=== PATIENT | female | born 1935 | race Caucasian/White ===

== ENCOUNTER → 2016-11-02 | Outpatient (CLI) | payer OTHER | LOC: FIMAGING 10:51 | PROVIDERS: ATTEND Internal Medicine | DX: Z12.39 Encounter for other screening for malignant neoplasm of breast (principal); N64.4 Mastodynia | CPT/HCPCS: 76641; G0206 ==

== ENCOUNTER → 2017-01-19 | Outpatient (CLI) | payer OTHER | LOC: FIMAGING 09:07 | PROVIDERS: ATTEND Internal Medicine | DX: Z12.31 Encounter for screening mammogram for malignant neoplasm of breast (principal) | CPT/HCPCS: G0202 ==

== ENCOUNTER → 2018-01-23 | Outpatient (CLI) | payer OTHER | LOC: FIMAGING 09:09 | PROVIDERS: ATTEND Internal Medicine | DX: Z12.31 Encounter for screening mammogram for malignant neoplasm of breast (principal) ==

== ENCOUNTER 2018-09-26 09:24 | Inpatient (IN) | payer OTHER ==
[2018-09-26] MEDS ORDERED: ONDANSETRON 4 MG/2 ML VIAL IVP PRN (11:10)
[2018-09-26] MEDS ORDERED: ACETAMINOPHEN 325 MG TAB PO PRN (11:10)
[2018-09-26] MEDS ORDERED: ONDANSETRON DISINTEGRATING 4 MG TAB PO PRN (11:10)
[2018-09-26] MEDS ORDERED: IOPAMIDOL (ISOVUE 370) 100 ML BTL IV ONE (13:13)
--- NOTE | 2018-09-26 18:11 | GCON ---
[f rep st] CONSULTATION PULMONARY CONSULTATION DATE OF CONSULTATION: 09/26/2018 REASON FOR CONSULTATION: Lung mass/consolidation associated with a loculated pleural effusion. HISTORY OF PRESENT ILLNESS: The patient is a very pleasant 83-year-old. Over the last several month s, she has had increasing fatigue and weakness, nonspecific. Over the last 2-3 weeks, she has had ri ght-sided pain primarily associated with coughing and sometimes with movement, not particularly with breathing. She has had no fevers, chills, or sweats. She has had some other general body achiness. She presented to her primary care physician and was found to have leukocytosis of 17,000. She was a dmitted for further evaluation. A CT scan of the chest has been done. There is a moderate sized rel atively circumferential loculated pleural effusion present and a left lower lobe consolidative mass t ype lesion with possible bronchial obstruction leading to it in the superior segment of the left lowe r lobe. Thoracentesis and bronchoscopy are indicated. The patient denies shortness of breath. Mayorga raf, she has had some dyspnea on exertion associated with her weakness over the last number weeks. PAST MEDICAL HISTORY: Remarkable for systemic hypertension and hyperlipidemia as well as hypothyroid ism. OUTPATIENT MEDICATIONS: Include iron, spironolactone, piroxicam, amitriptyline, Bystolic, Zestril, a nd Synthroid along with p.r.n. medications, vitamins and supplements. DRUG ALLERGIES: Cortisone and penicillins. SOCIAL HISTOR Y: The patient is . She is a never smoker. Significant alcohol is negative. FAMILY HISTORY: Noncontributory. REVIEW OF SYSTEMS: A 10-point review of systems is negative except as mentioned above. PHYSICAL EXAMINATION: GENERAL APPEARANCE: Reveals a very pleasant woman who appears mildly dyspneic in bed at rest. VITAL SIGNS: Blood pressure is 107/67, heart rate 97 and regular. Respiratory rat e is 20. On room air, saturations are approximately 90%. She is afebrile. HEENT AND NECK: Unremar kable for lymphadenopathy or thyromegaly. There is no jugular venous distention. No cervical adenop athy is appreciated. CHEST: Reveals markedly decreased breath sounds on the right side compared to the left. Some rales are present in the mid upper left lung versus a possible rub or both in this ar ea. There are no rhonchi. There are no wheezes. HEART: Regular in rate and rhythm. There is a so ft systolic murmur, no gallop. ABDOMEN: Soft, nontender. No masses appreciated. EXTREMITIES: Unr emarkable for significant edema. NEUROLOGIC: Status is intact. LABORATORY: Pending. Outpatient white blood cell count done yesterday was 17. Hematocrit 39.7. Pl atelets are normal. Sodium is 131, BUN 24 with a creatinine of 1.1. Liver function studies were nor mal. BNP was nonspecifically elevated at 626. ASSESSMENT: 1. Pleural effusion. The patient has at least a moderate circumferential loculated pleural effusion of unclear etiology. Infectious versus malignant causes are most likely. Thoracentesis will be req uired. This will be done by Radiology under ultrasound guidance tomorrow and sent for Gram stain, cu ltures, cytologies and chemistry studies. 2. Lung mass/consolidation. This is associated with a pleural effusion as outlined above. The bron chi going into the superior segment of the left lower lobe appear to be blocked. Bronchoscopy is ind icated. 3. History of hypertension. Blood pressure is currently on the low side, not elevated. PLAN AND RECOMMENDATIONS: The patient will be allowed to have clear liquids in the morning and then be kept n.p.o. Bronchoscopy will be done in the afternoon, exact time to be arranged. This will be done under fluoroscopic guidance if needed. Thoracentesis will be done by Radiology under ultrasound guidance and sent for appropriate cultures. Oxygen will likely be required, at least at night. Further plans and recommendations will be made based on the results of the above procedures. /[id number]/MODL
--- NOTE | 2018-09-26 19:36 | GHP ---
[f rep st] HISTORY AND PHYSICAL DATE OF ADMISSION: 09/26/2018 PRIMARY DIAGNOSIS: Fatigue and right-sided back pain. PAST MEDICAL HISTORY: Positive for hypertension, anxiety, GERD, coronary artery disease, hypothyroid ism, hyperlipidemia. SOCIAL HISTORY: Never smoker. ALLERGIES: Penicillin and cortisone injections. FAMILY MEDICAL HISTORY: Father congestive heart failure, CVA and diabetes. Mother DJD and congestiv e heart failure. Brother with AODM and heart problems. CURRENT MEDICATIONS: Vitamin C 500 mg 1 tablet p.o. daily, vitamin E 400 units 1 tablet p.o. daily, fish oil 1200 mg 2 capsules daily, vitamin D3 2000 units 1 tablet daily, magnesium 400 mg p.o. daily, iron 65 one tablet p.o. daily, Osteo Bi-Flex joint shield tablet 1 tablet p.o. daily, PreserVision/l utein capsule 1 p.o. daily, extract 1200 mg p.o. twice daily, Bystolic 10 mg p.o. once shelli ly, 20 mg p.o. daily, amitriptyline 50 mg p.o. q.h.s., spironolactone 25 mg p.o. daily, li sinopril 40 mg 1 tablet p.o. daily, levothyroxine sodium 88 mcg p.o. daily. HISTORY OF PRESENTING ILLNESS: Patient is a delightful 83-year-old female who presented [facility] and was seen by myself complaining of progressively worsening fatigue over the past 3 or so weeks, and worsening right-sided back pain which radiates around to her abdomen. She has not noti sebastien any fevers, chills, night sweats, cough, shortness of breath, wheezing, chest pain, palpitations, dizziness, lightheadedness or GI upset. Patient's exam in the office was grossly normal, but her la bs did reveal an elevated white count of about 17,000 with a left shift. After discussing with the p colton, she was admitted for further workup, given her progressively worsening fatigue and leukocytos is. On admission, chest x-ray revealed new volume loss in the right hemithorax associated with abnor mal pleural disease, possible empyema versus pulmonary infarction versus loculated pneumonia. CT ang iogram was negative for PE, but did reveal central right lower lobe consolidation with an area of low attenuation that could be related to necrosis, abscess or malignancy, and a moderate loculated right pleural effusion. The patient also has a 7 mm right lower lobe nodule and a T12 compression fractur e noted to be acute or subacute, with a right paracentral disk protrusion at T12-L1 causing moderate spinal canal narrowing. After discussion with Dr. Castellanos of Pulmonology, the plan will be for a thora centesis for further identification of the loculated pneumonia, but will plan to start broad-spectrum antibiotics this evening for coverage. Dr. Castellanos will also plan for bronchoscopy tomorrow. REVIEW OF SYSTEMS: GENERAL: She endorses fatigue. Denies fevers, chills, night sweats. RESPIRATOR Y: Denies cough, wheeze, shortness of breath. CARDIOVASCULAR: Denies chest pain, palpitations, diz ziness, lightheadedness. GI: Denies nausea, vomiting, diarrhea, abdominal bloating or distention. MUSCULOSKELETAL: Endorses right-sided mid to low back pain, which occasionally radiates around to th e front side of her abdomen. She also notes intermittent generalized joint and bone aching. SKIN: Denies itching or rash. NEURO: Denies numbness, tingling, change in strength or sensation. PHYSICAL EXAM: GENERAL: Alert, oriented. VITALS: Stable. RESPIRATORY: Diminished breath sounds to the right base with coarse breath sounds to the right side. CARDIOVASCULAR: S1, S2. Regular rat e and rhythm. No murmurs, rubs, gallops. ABDOMEN: Soft, nontender, nondistended. Positive bowel s ounds. SKIN: Warm and dry. NEURO: Grossly intact. ASSESSMENT AND PLAN: 1. Loculated right pleural effusion. Plan for thoracentesis tomorrow. 2. Right lower lobe consolidation. Starting cefepime and Levaquin. Also plan for bronchoscopy in t morning per Dr. Castellanos (appreciate assistance). Will continue to monitor white count. 3. T12 compression fracture. Pain management as needed. At this time, it is unclear whether or not her pain is related to pleurisy versus a compression fracture, but will treat with pain medication a s needed. 4. Essential hypertension. Continue outpatient medications, including Bystolic and Spironolactone. 5. Coronary artery disease, stable and without symptoms of acute coronary syndrome. Continue outpat ient medications and outpatient monitoring. 6. Hypothyroid. Levothyroxine. DISPOSITION: Admit as observation for further workup. /[id number]/MODL
[2018-09-26] MEDS ORDERED: CEFEPIME HCL 2 GM in NS 100 ML IV SCH (21:00)
[2018-09-27 04:40] LABS: PLATELET COUNT 280 10^3/uL (150-400)
[2018-09-27 04:52] LABS: INR 1.46 (0.83-1.16); PROTIME(PATIENT) 17.1 SEC (12.0-15.0)
[2018-09-27] MEDS ORDERED: traMADol 50 MG TAB PO PRN (08:04)
[2018-09-27] MEDS ORDERED: LIDOCAINE 1% 300 MG/30 ML SDV ONE ×2 (08:05→11:49)
[2018-09-27] MEDS: LISINOPRIL 40 MG TAB PO SCH (10:03)
[2018-09-27] MEDS: NEBIVOLOL HCL 5 MG TAB PO SCH (10:03)
[2018-09-27] MEDS: LEVOTHYROXINE 88 MCG TAB PO SCH (10:03)
[2018-09-27] MEDS: AMPICILLIN/SULBACTAM 3 GM in NS 100 ML IV SCH ×3 (10:05→21:07)
[2018-09-27] MEDS: ASCORBIC ACID 500 MG TAB PO SCH (10:13)
[2018-09-27] MEDS: MAGNESIUM OXIDE 400 MG TAB PO SCH (10:14)
[2018-09-27] MEDS: CHOLECALCIFEROL VIT D3 2,000 UNITS TAB/CAP PO SCH (10:14)
[2018-09-27] MEDS: PIROXICAM 20 MG PO SCH (10:14)
[2018-09-27] MEDS: SPIRONOLACTONE 25 MG TAB PO SCH (10:14)
[2018-09-27] MEDS: FERROUS SULFATE 325 MG TAB PO SCH (10:14)
--- NOTE | 2018-09-27 10:21 | SOAPPROG ---
SOAP Progress Note Assessment/Plan: Assessment: 83 yo female admitted for R loculated pleural effusion and RLL consolidation. Plan: Loculated pleural effusion and RLL consolidation: thoracentesis this morning and bronch this afternoon. D/w pharmacy and will switch abx to Unasyn for coverage until ID from [facility] comes back. White count up to 19k this morning. Will continue to monitor. T12 compression fracture: prn tramadol CAD: stable on current meds Hypothyroidism: synthroid Dispo: Will admit to inpt as anticipate greater than 2 midnight stay 09/27/18 10:22 Subjective: Ruby is resting in bed this morning, still feeling quite fatigued. Objective: Vital Signs Temp Pulse Resp BP Pulse Ox 36.8 C 109 H 16 129/75 H 87 L 09/27/18 07:05 09/27/18 07:05 09/27/18 07:05 09/27/18 07:05 09/27/18 07:05 Laboratory Results 09/27/18 04:08 09/27/18 04:08 09/26/18 09/27/18 09/28/18 05:59 05:59 05:59 Intake Total 200 Output Total 300 Balance -100 PT 17.1 SEC (12.0-15.0) H 09/27/18 04:08 INR 1.46 (0.83-1.16) H 09/27/18 04:08 Gen- alert, oriented Head- normocephalic, atraumatic Resp- diminished R base with coarse breath sounds to right CV- S1S2, RRR, no murmurs, rubs, gallops Skin- warm and dry ICD10 Worksheet Patient Problems: Problems Problem Status Onset Pleural effusion Acute - ICD10 Problem Qualifiers (1) Pleural effusion
[2018-09-27] MEDS ORDERED: LIDOCAINE 2% JELLY 6 ML TOPICAL SYR ONE (11:46)
[2018-09-27] MEDS ORDERED: EPINEPHrine 1 MG/10 ML SYR IVP ONE (11:46)
[2018-09-27] MEDS ORDERED: ALBUTEROL 3 ML DEYVIAL ONE (11:46)
[2018-09-27] MEDS ORDERED: ALBUTEROL 3 ML DEYVIAL IH ONE (12:17)
[2018-09-27] MEDS ORDERED: NS 500 ML IV ONE (12:17)
[2018-09-27] MEDS ORDERED: MIDAZOLAM 2 MG/2 ML VIAL ONE (13:03)
[2018-09-27] MEDS ORDERED: fentaNYL 100 MCG/2 ML INJ ONE (13:03)
[2018-09-27] MEDS ORDERED: fentaNYL 100 MCG/2 ML INJ IVP ONE (13:32)
[2018-09-27] MEDS ORDERED: MIDAZOLAM 2 MG/2 ML VIAL IVP ONE (13:33)
--- NOTE | 2018-09-27 14:39 | GPN ---
[f rep st] PROCEDURE NOTE PROCEDURE: Bronchoscopy. REASON FOR BRONCHOSCOPY: An 83-year-old woman admitted with lung mass, possibly postobstructive and related to the superior segment of the right lower lobe. This is associated with a complex, relative ly circumferential pleural effusion, indolent, but significant infection versus malignancy are highes t on the differential. PROCEDURE IN DETAIL: The procedure was performed in the endoscopy unit. Appropriate time-out was pe rformed. Informed consent was obtained from the patient. 5 cc of 4% lidocaine was used to anestheti ze the posterior oropharynx. Approximately 20 cc of 1% lidocaine was used topically to anesthetize t he vocal cords and lower tracheobronchial tree. 3 mg of Versed and 75 mcg of fentanyl total were giv en for conscious sedation. The fiberoptic bronchoscope was advanced via a bite block orally. The vocal cords were identified an d cannulated. The bronchoscope was then advanced into the trachea and in the lower tracheobronchial tree. Modest secretions, at best, were present. These were removed with suction and lavage. The le ft side was normal. The right upper lobe was normal, as was the right middle lobe. The right lower lobe was extrinsically compressed. The superior segment of the right upper lobe was also compressed extrinsically and was difficult to evaluate/difficult to enter. Washings and brushings were obtained from the superior segment of the right lower lobe and other lower lobe segments. These were sent fo r cultures, as well as cytologies. The patient tolerated the procedure well. There were no complications. Vital signs and oxygen satur ations on supplemental oxygen remained normal throughout the procedure. ASSESSMENT: Extrinsic compressive changes/narrowing of right lower lobe segments, especially the sup erior segment of the right lower lobe. Appropriate samples were obtained and sent to the lab. /[id number]/MODL
--- NOTE | 2018-09-27 15:41 | PDPROPOC ---
Sedation Plan of Care Sedation Plan of Care: vital signs stable, mental status noted, patient educated of risks, benefits, alternatives, patient can tolerate sedation ASA Classification: ASA 2 Planned drugs: fentanyl, midazolam Mallampati Score: Class 2 Mallampati Reference Image: Patient passed 3-3-2 rule?: Yes
--- NOTE | 2018-09-27 15:44 | ASMTCASEMG ---
Living Arrangements What is your living Answers: With Child(alvin) arrangement? Who do you live with? Discharge Plan Comments Coordination Status Comments Notes: Pt was admitted through the ED yesterday with weakness, fatigue, and leukocytosis. CM met with pt in her room today. She had thorocentesis ultrasound and bronchoscopy today. Awaiting results; suspected infection. Pt lives at home with her adult son, Lavelle Arriaga [phone]. Lavelle does not drive. Pt is normally independent and drives and is able to obtain her own meds and meals. CM left her a pamphlet with information on [employer]. She arrived to the ED by taxi because she didn't want her car to sit in the parking lot for an indeterminate amount of time. She does not use a walker or any other asisstive devices. No therapies are ordered. No CM needs identified at this time. CM will be available should needs change. CM D/C plan: TBD, likely independent to home. Date Signed: 09/27/2018 03:43 PM Electronically Signed By:Leticia Chaves
--- NOTE | 2018-09-27 18:21 | PDMN ---
Medical Necessity Medical necessity: [facility] [place] M540 Pleural Effusion, A-2 days: 83 yo w/ fatigue, back and abd pain. Eval reveals WBC 17K w/ left shift, direct admit for workup/tx. Dx texting shows loculated R pleural effusion w/ R lower lobe consolidation and a T12 compression fx. Pulm consult and thoracentesis ordered. Initially OBS but pt WBC increased to 19K overnight, thoracentesis shows suspected PNA w/ effusion, bronchoscopy performed showing significant infection vs. malignancy. Cultures pending. Pt cont on IVF and IV antibx. Meets [facility] [place] IP criteria for pleural effusion w/ admit indicated by loculated effusion. Change to IP status 09/27/18@1753 per MD order. Hx HTN, anxiety, GERD, CAD, hypothyroid, HLD
--- NOTE | 2018-09-27 18:37 | SOAPPROG ---
SOAP Progress Note Assessment/Plan: Assessment: Bronchoscopy was relatively unremarkable. Results pending. Thoracentesis suggests a low-grade empyema. White blood cells and gram- positive cocci present, low pH, high LDH, low glucose, etc. Only approximately 15 cc was obtained. The pleural process is quite organized. She will not get better without surgical drainage. VATS and or thoracotomy will be needed. Discussed with Dr. Melo. No emergent need for surgery identified. Dr. Melo is busy, with a full OR schedule. We will consult Dr. Monahan in the a.m.. Plan: Surgical consultation with Dr. Monahan in a.m.. Continue present antibiotics. Anticipate surgery in the next several days. All the above was discussed with the patient. Objective: Vital Signs Temp Pulse Resp BP Pulse Ox 36.5 C 97 20 100/57 L 93 09/27/18 17:22 09/27/18 17:22 09/27/18 17:22 09/27/18 17:22 09/27/18 17:22 Microbiology 09/27/18 09:30 Gram Stain - Final Pleural Fluid - Aspirate Laboratory Results 09/27/18 04:08 09/27/18 04:08 09/26/18 09/27/18 09/28/18 05:59 05:59 05:59 Intake Total 200 375 Output Total 300 Balance -100 375 PT 17.1 SEC (12.0-15.0) H 09/27/18 04:08 INR 1.46 (0.83-1.16) H 09/27/18 04:08 ICD10 Worksheet Patient Problems: Problems Problem Status Onset Pleural effusion Acute
[2018-09-27] MEDS: CALCIUM CARBONATE 500 MG TAB PO SCH (21:06)
[2018-09-27] MEDS: AMITRIPTYLINE HCL 50 MG TAB PO SCH (21:06)
[2018-09-28] MEDS: AMPICILLIN/SULBACTAM 3 GM in NS 100 ML IV SCH ×4 (03:50→23:47)
[2018-09-28] MEDS: LEVOTHYROXINE 88 MCG TAB PO SCH (04:43)
[2018-09-28] MEDS: SPIRONOLACTONE 25 MG TAB PO SCH (08:45)
[2018-09-28] MEDS: FERROUS SULFATE 325 MG TAB PO SCH (08:45)
[2018-09-28] MEDS: PIROXICAM 20 MG PO SCH (08:45)
[2018-09-28] MEDS: LISINOPRIL 40 MG TAB PO SCH (08:45)
[2018-09-28] MEDS: NEBIVOLOL HCL 5 MG TAB PO SCH (08:46)
[2018-09-28] MEDS: ASCORBIC ACID 500 MG TAB PO SCH (08:46)
[2018-09-28] MEDS: CHOLECALCIFEROL VIT D3 2,000 UNITS TAB/CAP PO SCH (08:46)
[2018-09-28] MEDS: MAGNESIUM OXIDE 400 MG TAB PO SCH (08:46)
--- NOTE | 2018-09-28 13:11 | SOAPPROG ---
SOAP Progress Note Assessment/Plan: Assessment: 83 yo female w/ RLL empyema, s/p bronch yesterday, awaiting consultation w/ Dr Monahan today - awaiting cultures, cont abx, appreciate input of Dr. Castellanos and Dr. 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 Case Mngt helping w/ this as well. -HTN cont Bystolic and ACEi, holding spironolactone right now w/ euvolemic state and has been having low bp's. -thoracic compression fx - cont tramadol prn Plan: 09/28/18 13:08 09/28/18 13:11 Subjective: doing ok, slept better last night, bit of a cough from bronch but no c/o anything except concern w/ care for son Objective: Vital Signs Temp Pulse Resp BP Pulse Ox 37.1 C 101 H 17 119/71 94 09/28/18 08:22 09/28/18 11:36 09/28/18 08:22 09/28/18 08:22 09/28/18 11:36 Microbiology 09/27/18 13:30 Mycobacterial Smear (MATTHEW) - Final Bronchial Alveolar Lavage - Right Lower Lobe 09/27/18 09:30 Gram Stain - Final Pleural Fluid - Aspirate 09/27/18 13:30 Gram Stain - Final Bronchial Alveolar Lavage - Right Lower Lobe 09/27/18 17:24 Mycobacterial Smear (MATTHEW) - Final Thoracic Fluid - Aspirate Laboratory Results 09/27/18 04:08 09/27/18 04:08 09/27/18 09/28/18 09/29/18 05:59 05:59 05:59 Intake Total 200 675 Output Total 300 Balance -100 675 PT 17.1 SEC (12.0-15.0) H 09/27/18 04:08 INR 1.46 (0.83-1.16) H 09/27/18 04:08 Gen: alert, oriented, sitting up in bed eating oatmeal Heetn: perr, eomi Neck: soft supple Chest: cta b, decreased bs posteriorly vidal RRL w/ dressing in place CV: rrr ABd: soft nt nd Ext: trace ankle edema, good pulses Neuro: a&O, pleasant, good affect and range of emotion - Pending Discharge Pending Discharge Within 24 Hours: No ICD10 Worksheet Patient Problems: Problems Problem Status Onset Pleural effusion Acute
--- NOTE | 2018-09-28 14:44 | SOAPPROG ---
SOAP Progress Note Assessment/Plan: Assessment: 83-YEAR-OLD FEMALE WITH RIGHT EMPYEMA/DOING REASONABLY WELL/STILL SOME PAIN IN THE RIGHT SIDE/AFEBRILE/THORACENTESIS UNSUCCESSFUL Plan: VATS DECORTICATION 09/28/18 14:43 Objective: Vital Signs Temp Pulse Resp BP Pulse Ox 37.1 C 101 H 17 119/71 94 09/28/18 08:22 09/28/18 11:36 09/28/18 08:22 09/28/18 08:22 09/28/18 11:36 Microbiology 09/27/18 13:30 Gram Stain - Final Bronchial Alveolar Lavage - Right Lower Lobe 09/27/18 13:30 Mycobacterial Smear (MATTHEW) - Final Bronchial Alveolar Lavage - Right Lower Lobe 09/27/18 09:30 Gram Stain - Final Pleural Fluid - Aspirate 09/27/18 17:24 Mycobacterial Smear (MATTHEW) - Final Thoracic Fluid - Aspirate Laboratory Results 09/27/18 04:08 09/27/18 04:08 09/27/18 09/28/18 09/29/18 05:59 05:59 05:59 Intake Total 200 675 Output Total 300 Balance -100 675 PT 17.1 SEC (12.0-15.0) H 09/27/18 04:08 INR 1.46 (0.83-1.16) H 09/27/18 04:08 ICD10 Worksheet Patient Problems: Problems Problem Status Onset Pleural effusion Acute
--- NOTE | 2018-09-28 14:55 | SOAPPROG ---
SOAP Progress Note Assessment/Plan: Assessment: Pleural effusion, circumferential consistent with a low-grade empyema. White blood cells and gram-positive cocci present, low pH, high LDH, low glucose, etc. Only approximately 15 cc was obtained. The pleural process is quite organized. She will not get better without surgical drainage. VATS and or thoracotomy will be needed. Dr. Monahan has seen the patient, VATS pleurectomy possibly later today or tomorrow. Right lower lobe consolidation. Cannot rule out obstruction related to the superior segment of the right middle lobe but would seem unlikely. Bronchoscopy relatively unremarkable. Growing only mixed arleth. AFB negative. Cytologies pending. Plan: VATS or thoracotomy per Dr. Monahan, possibly today. Will await the results of his findings and further results from bronchoscopy. Subjective: Feels okay. Denies pleuritic chest pain. Some cough occasionally, no mucus. Denies fevers, chills Objective: Vital Signs Temp Pulse Resp BP Pulse Ox 37.1 C 101 H 17 119/71 94 09/28/18 08:22 09/28/18 11:36 09/28/18 08:22 09/28/18 08:22 09/28/18 11:36 Microbiology 09/27/18 13:30 Gram Stain - Final Bronchial Alveolar Lavage - Right Lower Lobe 09/27/18 13:30 Mycobacterial Smear (MATTHEW) - Final Bronchial Alveolar Lavage - Right Lower Lobe 09/27/18 09:30 Gram Stain - Final Pleural Fluid - Aspirate 09/27/18 17:24 Mycobacterial Smear (MATTHEW) - Final Thoracic Fluid - Aspirate Laboratory Results 09/27/18 04:08 09/27/18 04:08 09/27/18 09/28/18 09/29/18 05:59 05:59 05:59 Intake Total 200 675 Output Total 300 Balance -100 675 PT 17.1 SEC (12.0-15.0) H 09/27/18 04:08 INR 1.46 (0.83-1.16) H 09/27/18 04:08 Physical Exam - Physical Exam General Appearance: alert, no apparent distress EENT: other (On nasal cannula oxygen, 1-2 L) Neck: normal inspection (No JVD), No lymphadenopathy (R), No lymphadenopathy (L) Respiratory: decreased breath sounds (Bilaterally, more so on the right than the left), rales (Some scattered rales on the right in the mid lung zone. No obvious rub), other (Dullness present on the right versus left) Cardiac/Chest: regular rate, rhythm, No gallop Abdomen: normal bowel sounds, non-tender, soft Skin: normal color, warm/dry Extremities: No pedal edema Neuro/Psych: no motor/sensory deficits, No cognition abnormalities ICD10 Worksheet Patient Problems: Problems Problem Status Onset Pleural effusion Acute
--- NOTE | 2018-09-28 15:07 | ASMTCMCOM ---
CM Note CM Note Notes: Met w patient d/t reports that she was anxious about being hospitalized while her son - for whom she is caregiver - is at home. Patient is to have VATS today; d/c date and needs TBD. 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 She says that he does not drive but he was able to take the bus to [place] today. She says that he is independent in all of his ADLs and would be able to buy groceries if he needed to. It seems like she is responsible for all of the finances in the household and is mainly worried that if something happened to her that he wouldn't know how/be able to access accounts, finances, etc. She does have a trust set up for him and contacted her electrical continuity tester today when she found out she needed the procedure. We talked about getting more support - for her - in the house when she is d/c'ed. She has used [facility] [employer] before and is open to using them again. She has also tried to contact the [facility] and I told her that we could help with this, as well. Case Management will follow so that she has a safe d/c home and does not compromise her health in her desire to care for her son. Date Signed: 09/28/2018 03:06 PM Electronically Signed By:Dian Walden RN
[2018-09-28] MEDS ORDERED: LR 1,000 ML IV ONE (16:27)
[2018-09-28] MEDS ORDERED: DEXAMETHASONE 4 MG/ML VIAL ONE (17:05)
[2018-09-28] MEDS ORDERED: ONDANSETRON 4 MG/2 ML VIAL ONE (17:05)
[2018-09-28] MEDS ORDERED: ROCURONIUM 100 MG/10 ML VIAL ONE (17:05)
[2018-09-28] MEDS ORDERED: TALC 3 GM INTRAPLEURAL VIAL ONE (19:23)
[2018-09-28] MEDS ORDERED: BUPIVACAINE 0.5% 30 ML SDV ONE (19:23)
[2018-09-28] MEDS ORDERED: NALOXONE HCL 0.4 MG/ML INJ IVP PRN (19:38)
[2018-09-28] MEDS ORDERED: NS 500 ML IV PRN (19:38)
[2018-09-28] MEDS ORDERED: ALBUTEROL 3 ML DEYVIAL IH PRN (19:38)
[2018-09-28] MEDS ORDERED: HYDROCODONE/APAP 5/325 TAB PO PRN (19:38)
[2018-09-28] MEDS ORDERED: fentaNYL 100 MCG/2 ML INJ IVP PRN (19:38)
[2018-09-28] MEDS ORDERED: ONDANSETRON 4 MG/2 ML VIAL IVP PRN ×2 (19:38→22:52)
[2018-09-28] MEDS ORDERED: HYDROmorphONE/DILAUDID 1 MG/ML INJ IVP PRN ×2 (19:38→22:52)
--- NOTE | 2018-09-28 19:40 | PDANEPAE ---
ANE History of Present Illness R VATS ANE Past Medical History - Cardiovascular History Hx Hypertension: Yes - Pulmonary History Hx Asthma/Reactive Airway Disease: Yes Hx Recent Upper Respiratory Infection: Yes Hx Oxygen in Use at Home: No Hx Sleep Apnea: No Sleep Apnea Screening Result - Last Documented: Negative - Endocrine History Hx Diabetes: No - Chronic Pain History Chronic Pain: No ANE Review of Systems Review of Systems: ANE Patient History - Allergies Allergies/Adverse Reactions: cortisone [Cortisone] Allergy (Intermediate, Verified 09/26/18 11:22) Flushing/Rash Penicillins Allergy (Intermediate, Verified 09/26/18 11:22) Loss of consciousness/Rash - Home Medications Home Medications: Amitriptyline HCl [Elavil 50 mg (*)] 50 mg PO HS 09/26/18 [Last Taken 09/25/18] Ascorbic Acid [Vitamin C 500 mg (*)] 500 mg PO DAILY 09/26/18 [Last Taken ] C/E/Zn/Cu/OM3/DHA/EPA/LUT/ZEAX [Preservision Areds 2 Softgel] 1 each PO BID [Last Taken 09/26/18] Calcium Carbonate [Oyster Shell Calcium 500 mg (*)] 1,000 mg PO HS 09/26/18 [ Last Taken 09/25/18] Cholecalciferol Vit D3 [Vitamin D3 2000 units tab (OTC)] 2,000 units PO DAILY [Last Taken 09/26/18] Ferrous Sulfate [Ferrous Sulf 325 MG (*)] 325 mg PO DAILY 09/26/18 [Last Taken 09/25/18] Herbals/Supplements -Info Only 1 ea PO DAILY 09/26/18 [Last Taken Unknown] Ibuprofen [Motrin (*)] 200 mg PO DAILY PRN 09/26/18 [Last Taken Unknown] Levothyroxine [Synthroid 88 mcg (*)] 88 mcg PO DAILY06 09/26/18 [Last Taken ] Lisinopril [Zestril 40 mg (*)] 40 mg PO DAILY 09/26/18 [Last Taken 09/26/18] Magnesium Oxide [Magnesium Oxide 400 mg (*)] 400 mg PO DAILY 09/26/18 [Last Taken 09/25/18] Nebivolol HCl [Bystolic] 10 mg PO DAILY 09/26/18 [Last Taken 09/26/18] Mathias-3 Fatty Acids [Fish Oil 1000 mg (*)] 1,000 mg PO HS 09/26/18 [Last Taken 09/25/18] Mathias-3 Fatty Acids [Fish Oil 1000 mg (*)] 2,000 mg PO DAILY 09/26/18 [Last Taken 09/26/18] Piroxicam [Feldene] 20 mg PO DAILY 09/26/18 [Last Taken 09/26/18] Spironolactone [Aldactone 25 MG (*)] 25 mg PO DAILY 09/26/18 [Last Taken ] - NPO status NPO Since - Liquids (Date): 09/27/18 NPO Since - Liquids (Time): 10:30 NPO Since - Solids (Date): 09/27/18 NPO Since - Solids (Time): 10:30 - Smoking Hx Smoking Status: Never smoked ANE Labs/Vital Signs - Labs Result Diagrams: 09/27/18 04:08 09/27/18 04:08 - Vital Signs Blood Pressure: 132/79 Heart Rate: 102 Respiratory Rate: 16 O2 Sat (%): 96 Height: 152.4 cm Weight: 62.5 kg ANE Physical Exam - Airway Neck exam: FROM Mallampati Score: Class 2 Mouth exam: normal dental/mouth exam - Pulmonary Pulmonary: clear to auscultation - Cardiovascular Cardiovascular: regular rate and rhythym - ASA Status ASA Status: III ANE Anesthesia Plan Anesthesia Plan: general endotracheal anesthesia Specialized Airway: double lumen tube, fiberoptic intubation
[2018-09-28] MEDS ORDERED: HYDROmorphONE/DILAUDID 2 MG/ML INJ ONE (19:45)
[2018-09-28] MEDS ORDERED: VASOPRESSIN 20 UNIT/ML VIAL ONE (20:21)
[2018-09-28] MEDS ORDERED: PHENYLEPHRINE HCL 100 MCG/ML SYR ONE (20:22)
[2018-09-28] MEDS ORDERED: SUGAMMADEX SODIUM 200 MG/2 ML VIAL IVP ONE (21:46)
--- NOTE | 2018-09-28 22:02 | POSTANESTH ---
Post Anesthetic Evaluation Cardiovascular Status: Normal, Stable Respiratory Status: Normal, Stable Level of Consciousness/Mental Status: Can Participate in Eval, Alert and Oriented Pain Control: Adequate, Prn Tx Ordered Nausea/Vomiting Control: Adequate, Prn Tx Ordered Complications Possibly Related to Anesthesia: None Noted
--- NOTE | 2018-09-28 22:48 | POSTOPPROG ---
Post Op Note Date of Operation: 09/28/18 Surgeon: Michael Monahan Anesthesiologist: GOSIA Anesthesia: GET(General Endotracheal) Pre-op Diagnosis: RT EMPYEMA Post-op Diagnosis: SAME Indication: PAIN, LUNG ENTRAPMENT Procedure: VATS DRAINAGE EMPYEMA AND DECORTICATION Findings: THICK PUS POSTERIORLY WITH FIBRINOUS EXUDATE AND RLL PNEUMONIA Inf/Abcess present in the surg proc area at time of surgery?: Yes Depth: Organ Space EBL: Minimal Complications: 0 Drains: Constavac Specimen(s): CULTURES AND PLEURAL EXUDATE
[2018-09-28] MEDS ORDERED: OXYCODONE/APAP 5/325 TAB PO PRN (22:52)
[2018-09-28] MEDS ORDERED: KETOROLAC 15 MG/1 ML SDV ONE (22:56)
[2018-09-28] MEDS: KETOROLAC 15 MG/1 ML SDV IVP SCH (23:03)
[2018-09-28] MEDS: AMITRIPTYLINE HCL 50 MG TAB PO SCH (23:47)
[2018-09-28] MEDS: PRESERVISION AREDS2 FORMULA EYE VIT 1 EACH PO SCH (23:47)
[2018-09-28] MEDS: CALCIUM CARBONATE 500 MG TAB PO SCH (23:47)
[2018-09-29] MEDS: D5W 1/2 NS W/ 20 KCl/L 1,000 ML IV SCH ×2 (00:04→14:49)
[2018-09-29] MEDS: AMPICILLIN/SULBACTAM 3 GM in NS 100 ML IV SCH ×2 (03:10→09:28)
[2018-09-29 04:31] LABS: PLATELET COUNT 284 10^3/uL (150-400)
[2018-09-29] MEDS: KETOROLAC 15 MG/1 ML SDV IVP SCH ×4 (06:02→23:58)
[2018-09-29] MEDS: LEVOTHYROXINE 88 MCG TAB PO SCH (06:03)
--- NOTE | 2018-09-29 09:18 | SOAPPROG ---
SOAP Progress Note Assessment/Plan: Assessment: Pneumonia with empyema. SP VATS and bronch. Doing well Plan: Continue antibiotics.Follow pleural fluid culture. Follow glucose. 09/29/18 09:18 Subjective: Feeling OK. No pain issues. Breathing better. 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 COR RRR, glucose a bit up this morning however she is on IV fluids with glucose. ICD10 Worksheet Patient Problems: Problems Problem Status Onset Pleural effusion Acute
[2018-09-29] MEDS: ASCORBIC ACID 500 MG TAB PO SCH (09:28)
[2018-09-29] MEDS: MAGNESIUM OXIDE 400 MG TAB PO SCH (09:28)
[2018-09-29] MEDS: CHOLECALCIFEROL VIT D3 2,000 UNITS TAB/CAP PO SCH (09:28)
[2018-09-29] MEDS: LISINOPRIL 40 MG TAB PO SCH (09:28)
[2018-09-29] MEDS: FERROUS SULFATE 325 MG TAB PO SCH (09:28)
[2018-09-29] MEDS: PRESERVISION AREDS2 FORMULA EYE VIT 1 EACH PO SCH ×2 (09:28→20:38)
[2018-09-29] MEDS: NEBIVOLOL HCL 5 MG TAB PO SCH (09:29)
[2018-09-29] MEDS: PIROXICAM 20 MG PO SCH (09:39)
--- NOTE | 2018-09-29 09:51 | ASMTCMCOM ---
CM Note CM Note Notes: CM met with pt in her room and gave her phone number for [facility] so she can call them and find out what resources they can connect her with that would benefit her. She is particularly interested in housecleaning services, possibly discounted for seniors. CM also gave her the phone # for [facility] [employer] in case pt feels she could benefit from caregiver services when she leaves the hospital. She used their services for her in the past. CM will continue to follow pt's progress and provide resource phone #s and/or referrals if further needs arise. CM D/C plan: TBD, most likely independent to home with possible caregiver services. Date Signed: 09/29/2018 09:51 AM Electronically Signed By:Leticia Chaves
--- NOTE | 2018-09-29 09:53 | SOAPPROG ---
SOAP Progress Note Assessment/Plan: Assessment/plan: 83 y/o F s/p R VATS drainage empyema and decortication POD #1 Pain. Well controlled. Chest tubes in place with no air leak. Serosanguinous drainage. Continue to suction. Cultures pending. Continue abx. S: Doing well overall. Endorses midback pain, but improved after surgery. O: Alert Afebrile RRR Chest: Crackles at R base, otherwise clear. Chest tubes in place with no air leak. 09/29/18 09:50 Objective: Vital Signs Temp Pulse Resp BP Pulse Ox 36.4 C 95 16 140/88 H 97 09/29/18 07:35 09/29/18 09:29 09/29/18 07:35 09/29/18 09:29 09/29/18 07:35 Microbiology 09/28/18 21:06 Gram Stain - Final Chest - Eswab 09/27/18 13:30 Mycobacterial Smear (MATTHEW) - Final Bronchial Alveolar Lavage - Right Lower Lobe Mycobacterium tuberculosis DNA ( PCR - Final Pcr Negative For M. Tb Complex 09/27/18 13:30 Gram Stain - Final Bronchial Alveolar Lavage - Right Lower Lobe 09/27/18 09:30 Gram Stain - Final Pleural Fluid - Aspirate Laboratory Results 09/29/18 04:06 09/29/18 04:06 09/28/18 09/29/18 09/30/18 05:59 05:59 05:59 Intake Total 675 1112 Output Total 1275 80 Balance 675 -163 -80 PT 17.1 SEC (12.0-15.0) H 09/27/18 04:08 INR 1.46 (0.83-1.16) H 09/27/18 04:08 ICD10 Worksheet Patient Problems: Problems Problem Status Onset Pleural effusion Acute
--- NOTE | 2018-09-29 13:38 | SOAPPROG ---
SOAP Progress Note Assessment/Plan: Assessment: Pleural effusion, circumferential consistent with a low-grade empyema. White blood cells and gram-positive cocci present, low pH, high LDH, low glucose, etc. Only approximately 15 cc was obtained. The pleural process was quite organized. Status post VATS, doing very well postoperatively. ID: Growing strep intermedius from thoracentesis culture. Drug of choice is ceftriaxone. On Unasyn now and although tolerating this well she does have a listed allergy to penicillins? Will adjust antibiotics. Right lower lobe consolidation. Cannot rule out obstruction related to the superior segment of the right middle lobe but would seem unlikely. Bronchoscopy relatively unremarkable. Growing only mixed arleth. AFB negative. Cytologies pending. Plan: Continue postop care, pain management as needed. Change antibiotics to ceftriaxone. No indication for anaerobic coverage at this point however if needed we can add Flagyl. IS. Mobilize as tolerated. DC Brantley when possible. Lovenox tomorrow. Await further culture results and cytologies. Subjective: Doing well postoperatively. Not much pain. Denies shortness of breath. Little cough, no mucus. 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 Tb Complex 09/27/18 17:24 Mycobacterial Smear (MATTHEW) - Final Thoracic Fluid - Aspirate 09/28/18 21:06 Gram Stain - Final Chest - Eswab Laboratory Results 09/29/18 04:06 09/29/18 04:06 09/28/18 09/29/18 09/30/18 05:59 05:59 05:59 Intake Total 675 1112 Output Total 1275 380 Balance 675 -163 -380 PT 17.1 SEC (12.0-15.0) H 09/27/18 04:08 INR 1.46 (0.83-1.16) H 09/27/18 04:08 Physical Exam - Physical Exam General Appearance: alert, no apparent distress EENT: other (Nasal cannula) Neck: normal inspection (No JVD) Respiratory: decreased breath sounds (Decreased breath sounds bilaterally. Air movement on the right is significantly better.), rales (Scattered rales throughout the right lung), other (Chest tube in place on the right, serosanguineous drainage.), No respiratory distress, No rhonchi, No wheezing Cardiac/Chest: regular rate, rhythm, No gallop Abdomen: normal bowel sounds, non-tender, soft Pelvic Exam: other (Brantley catheter in place, good urine output.) Skin: normal color, warm/dry Extremities: No pedal edema Neuro/Psych: no motor/sensory deficits, No cognition abnormalities ICD10 Worksheet Patient Problems: Problems Problem Status Onset Pleural effusion Acute
[2018-09-29] MEDS: CALCIUM CARBONATE 500 MG TAB PO SCH (20:38)
[2018-09-29] MEDS: AMITRIPTYLINE HCL 50 MG TAB PO SCH (20:38)
[2018-09-30 04:32] LABS: PLATELET COUNT 282 10^3/uL (150-400)
[2018-09-30] MEDS: KETOROLAC 15 MG/1 ML SDV IVP SCH ×3 (04:57→17:56)
[2018-09-30] MEDS: LEVOTHYROXINE 88 MCG TAB PO SCH (04:58)
[2018-09-30] MEDS: D5W 1/2 NS W/ 20 KCl/L 1,000 ML IV SCH (04:58)
[2018-09-30] MEDS: NEBIVOLOL HCL 5 MG TAB PO SCH (09:23)
[2018-09-30] MEDS: ASCORBIC ACID 500 MG TAB PO SCH (09:23)
[2018-09-30] MEDS: MAGNESIUM OXIDE 400 MG TAB PO SCH (09:23)
[2018-09-30] MEDS: PRESERVISION AREDS2 FORMULA EYE VIT 1 EACH PO SCH ×2 (09:23→21:18)
[2018-09-30] MEDS: CHOLECALCIFEROL VIT D3 2,000 UNITS TAB/CAP PO SCH (09:24)
[2018-09-30] MEDS: LISINOPRIL 40 MG TAB PO SCH (09:24)
[2018-09-30] MEDS: FERROUS SULFATE 325 MG TAB PO SCH (09:24)
--- NOTE | 2018-09-30 10:30 | SOAPPROG ---
SOAP Progress Note Assessment/Plan: Assessment: 83yo F s/p VATS for empyema - VSS, HDs - pain is well controlled, using minimal narcotics - CTs in good position, lung ooks great on XR - Plan: keep CTs to suction, plan to water seal tomorrow Vs Tuesday. Cont abx, IS , ambulate. Overall, looks great Plan: 09/30/18 10:29 Subjective: feels great Objective: Vital Signs Temp Pulse Resp BP Pulse Ox 36.6 C 97 16 135/74 H 96 09/30/18 07:53 09/30/18 07:53 09/30/18 07:53 09/30/18 07:53 09/30/18 07:53 Microbiology 09/27/18 09:30 Gram Stain - Final Pleural Fluid - Aspirate 09/28/18 21:06 Gram Stain - Final Chest - Eswab 09/27/18 13:30 Gram Stain - Final Bronchial Alveolar Lavage - Right Lower Lobe 09/27/18 13:30 Mycobacterial Smear (MATTHEW) - Final Bronchial Alveolar Lavage - Right Lower Lobe Mycobacterium tuberculosis DNA ( PCR - Final Pcr Negative For M. Tb Complex 09/27/18 17:24 Mycobacterial Smear (MATTHEW) - Final Thoracic Fluid - Aspirate Laboratory Results 09/30/18 04:10 09/30/18 04:10 09/29/18 09/30/18 10/01/18 05:59 05:59 05:59 Intake Total 1112 3047 300 Output Total 1275 2980 400 Balance -163 67 -100 PT 17.1 SEC (12.0-15.0) H 09/27/18 04:08 INR 1.46 (0.83-1.16) H 09/27/18 04:08 ICD10 Worksheet Patient Problems: Problems Problem Status Onset Pleural effusion Acute
--- NOTE | 2018-09-30 11:32 | SOAPPROG ---
SOAP Progress Note Assessment/Plan: Assessment: 83 yo female w/ RLL empyema, s/p bronch and now s/p VATS w/ Chest tube in place - -doing remarkably well, needing minimal pain meds, CT in good place and set to suction, cxr looks great, appreciate surgery's input and assistance. Stop IVF and d/c dimas. Appreciate Dr. Castellanos's input, abx adjusted to ceftriaxone yesterday. Watching culture results. -HTN cont Bystolic and ACEi, holding spironolactone right now w/ euvolemic state and has been having low bp's - consider restarting possibly tomorrow w/ trace ankle edema, but will stop IVF she is taking plenty in po now. -thoracic compression fx - cont tramadol prn -dvt proph - ? if ok to start lovenox if surgery agrees 09/30/18 11:23 Subjective: Doing really well, was up in chair and did some walking yesterday for hours Objective: Vital Signs Temp Pulse Resp BP Pulse Ox 36.9 C 99 16 116/67 97 09/30/18 11:12 09/30/18 11:12 09/30/18 11:12 09/30/18 11:12 09/30/18 11:12 Microbiology 09/27/18 09:30 Gram Stain - Final Pleural Fluid - Aspirate 09/28/18 21:06 Gram Stain - Final Chest - Eswab 09/27/18 13:30 Gram Stain - Final Bronchial Alveolar Lavage - Right Lower Lobe 09/27/18 13:30 Mycobacterial Smear (MATTHEW) - Final Bronchial Alveolar Lavage - Right Lower Lobe Mycobacterium tuberculosis DNA ( PCR - Final Pcr Negative For M. Tb Complex 09/27/18 17:24 Mycobacterial Smear (MATTHEW) - Final Thoracic Fluid - Aspirate Laboratory Results 09/30/18 04:10 09/30/18 04:10 09/29/18 09/30/18 10/01/18 05:59 05:59 05:59 Intake Total 1112 3047 300 Output Total 1275 2980 500 Balance -163 67 -200 PT 17.1 SEC (12.0-15.0) H 09/27/18 04:08 INR 1.46 (0.83-1.16) H 09/27/18 04:08 Gen: A&Ox 4, pleasant, bright affect Heent: eomi, perrl NECK: soft/supple CHEST: CT in place w/ dressing on R, coarse bs CV: rrr ABD: soft nt nd Ext: trace ankle edema : dimas in place - Pending Discharge Pending Discharge Within 24 Hours: No ICD10 Worksheet Patient Problems: Problems Problem Status Onset Pleural effusion Acute
--- NOTE | 2018-09-30 16:36 | SOAPPROG ---
SOAP Progress Note Assessment/Plan: Assessment: Pleural effusion, circumferential consistent with a low-grade empyema. White blood cells and gram-positive cocci present, low pH, high LDH, low glucose, etc. Only approximately 15 cc was obtained. The pleural process was quite organized. Status post VATS 09/28, doing very well postoperatively. ID: Growing strep intermedius from thoracentesis culture. On ceftriaxone. Right lower lobe consolidation on initial CT scan. Could not rule out rule out obstruction related to the superior segment of the right middle lobe but unlikely. Bronchoscopy relatively unremarkable. Growing only mixed arleth. AFB negative. Cytologies pending. Chest x-rays postoperatively do not suggest on going infiltrate/consolidation in the right lower lobe. Plan: Continue postop care, pain management as needed. Continue ceftriaxone. No indication for anaerobic coverage at this point however if needed we can add Flagyl. IS. Mobilize as tolerated. Lovenox tomorrow. Await further culture results and cytologies. Subjective: Doing well. In good spirits. Denies shortness of breath or chest pain. Objective: Vital Signs Temp Pulse Resp BP Pulse Ox 36.7 C 88 16 120/77 98 09/30/18 16:17 09/30/18 16:17 09/30/18 16:17 09/30/18 16:17 09/30/18 16:17 Microbiology 09/28/18 21:06 Gram Stain - Final Chest - Eswab 09/27/18 13:30 Gram Stain - Final Bronchial Alveolar Lavage - Right Lower Lobe Bronchial Culture - Final 09/27/18 09:30 Gram Stain - Final Pleural Fluid - Aspirate 09/27/18 13:30 Mycobacterial Smear (MATTHEW) - Final Bronchial Alveolar Lavage - Right Lower Lobe Mycobacterium tuberculosis DNA ( PCR - Final Pcr Negative For M. Tb Complex 09/27/18 17:24 Mycobacterial Smear (MATTHEW) - Final Thoracic Fluid - Aspirate Laboratory Results 09/30/18 04:10 09/30/18 04:10 09/29/18 09/30/18 10/01/18 05:59 05:59 05:59 Intake Total 1112 3047 300 Output Total 1275 2980 500 Balance -163 67 -200 PT 17.1 SEC (12.0-15.0) H 09/27/18 04:08 INR 1.46 (0.83-1.16) H 09/27/18 04:08 CXR: Improved aeration on the right. Right hemidiaphragm remains elevated. Increased markings present, improved. No obvious focal infiltrate. Physical Exam - Physical Exam General Appearance: alert, no apparent distress EENT: PERRL/EOMI, other (Nasal cannula in place at 2 L) Neck: normal inspection Respiratory: lungs clear (Anteriorly), decreased breath sounds (Decreased breath sounds bilaterally, slightly more so on the right than the left. Rales present on the right), No rhonchi Cardiac/Chest: regular rate, rhythm, other (Chest tube in place on the right), No gallop Abdomen: normal bowel sounds, non-tender, soft Skin: normal color, warm/dry Extremities: No pedal edema Neuro/Psych: no motor/sensory deficits, No cognition abnormalities ICD10 Worksheet Patient Problems: Problems Problem Status Onset Pleural effusion Acute
[2018-09-30] MEDS: CALCIUM CARBONATE 500 MG TAB PO SCH (21:18)
[2018-09-30] MEDS: AMITRIPTYLINE HCL 50 MG TAB PO SCH (21:19)
[2018-10-01] MEDS: KETOROLAC 15 MG/1 ML SDV IVP SCH ×5 (00:49→23:05)
[2018-10-01 04:41] LABS: PLATELET COUNT 288 10^3/uL (150-400)
[2018-10-01] MEDS: LEVOTHYROXINE 88 MCG TAB PO SCH (05:39)
[2018-10-01] MEDS ORDERED: METOPROLOL TARTRATE 5 MG/5 ML INJ IVP ONE ×2 (08:45→10:49)
[2018-10-01] MEDS: NEBIVOLOL HCL 5 MG TAB PO SCH (08:52)
[2018-10-01] MEDS: LISINOPRIL 40 MG TAB PO SCH (08:53)
[2018-10-01] MEDS: MAGNESIUM OXIDE 400 MG TAB PO SCH (10:16)
[2018-10-01] MEDS: FERROUS SULFATE 325 MG TAB PO SCH (10:16)
[2018-10-01] MEDS: ENOXAPARIN 40 MG/0.4 ML SYR SC SCH (10:16)
[2018-10-01] MEDS: CHOLECALCIFEROL VIT D3 2,000 UNITS TAB/CAP PO SCH (10:16)
[2018-10-01] MEDS: ASCORBIC ACID 500 MG TAB PO SCH (10:16)
[2018-10-01] MEDS: PRESERVISION AREDS2 FORMULA EYE VIT 1 EACH PO SCH ×2 (10:16→20:38)
--- NOTE | 2018-10-01 12:31 | SOAPPROG ---
SOAP Progress Note Assessment/Plan: Assessment: 83 yo female w/ RLL empyema, s/p bronch and now s/p VATS pod 2 w/ Chest tubes in place - -doing remarkably well, needing minimal pain meds, CT's in good place and cxr stable, appreciate surgery's input and assistance - likely will have d/c of chest tubes tomorrow. IVF's and dimas removed yesterday, doing well w/ ambulating to bathroom, up in chair. Growing streptococcus intermedius, covered with ceftriaxone. -SVT this am - gave metoprolol 2.5, not better, bp ok so tried 5 mg metoprolol IV and now back in NSR. [place] fine the whole time, likely just stress and irritation with so much going on. Will follow on tele, if remains in NSR great , if goes back into SVT will transfer to PCU with dilt gtt. -HTN cont Bystolic and ACEi, holding spironolactone right now w/ euvolemic state and has been having low bp's. -thoracic compression fx - cont tramadol prn -dvt proph - lovenox, scd's ambulating 10/01/18 12:27 10/01/18 12:31 Subjective: Doing well, did not feel bad while in svt this am, chest feels a little more sore today but really doing well overall Objective: Vital Signs Temp Pulse Resp BP Pulse Ox 36.7 C 144 H 16 121/78 H 97 10/01/18 11:16 10/01/18 11:16 10/01/18 11:16 10/01/18 11:16 10/01/18 11:16 Microbiology 09/27/18 09:30 Gram Stain - Final Pleural Fluid - Aspirate 09/28/18 21:06 Gram Stain - Final Chest - Eswab 09/27/18 13:30 Gram Stain - Final Bronchial Alveolar Lavage - Right Lower Lobe Bronchial Culture - Final Laboratory Results 10/01/18 03:50 09/30/18 04:10 09/30/18 10/01/18 10/02/18 05:59 05:59 05:59 Intake Total 3047 1625 Output Total 2980 2230 Balance 67 -605 PT 17.1 SEC (12.0-15.0) H 09/27/18 04:08 INR 1.46 (0.83-1.16) H 09/27/18 04:08 Gen: alert oriented, pleasant Heent: eomi, perrl, wearing nasal cannula CHEST: CT's on R in place w/ dressings, minimal output overnight CV: was tachy, now back to RRR ABD: soft nt nd Ext: trace pedal edema Neuro: alert and oriented Psych: bright affect - Pending Discharge Pending Discharge Within 24 Hours: No ICD10 Worksheet Patient Problems: Problems Problem Status Onset Pleural effusion Acute
[2018-10-01] MEDS ORDERED: LACTULOSE 20 GM/30 ML UDCUP PO PRN (12:36)
[2018-10-01] MEDS ORDERED: MAGNESIUM HYDROXIDE 30 ML UDCUP PO PRN (12:36)
[2018-10-01] MEDS ORDERED: BISACODYL 10 MG SUPP PR PRN (12:36)
[2018-10-01] MEDS ORDERED: POLYETHYLENE GLYCOL 3350 17 GM PKT PO PRN (12:36)
--- NOTE | 2018-10-01 12:52 | SOAPPROG ---
SOAP Progress Note Assessment/Plan: Assessment: 83yo F s/p VATS for empyema - new SVT, attempting metop to see if breaks, HDS - great cough, no air leak. output appropriate. KEep to suction. Eval tomorrow for poss DC Plan: 09/30/18 10:29 10/01/18 12:51 Subjective: despite new SVT, has no complaints Objective: Vital Signs Temp Pulse Resp BP Pulse Ox 36.7 C 90 16 114/65 98 10/01/18 11:16 10/01/18 12:40 10/01/18 12:40 10/01/18 12:40 10/01/18 12:40 Microbiology 09/26/18 11:30 Blood Culture - Final Blood 09/26/18 11:25 Blood Culture - Final Blood 09/27/18 09:30 Gram Stain - Final Pleural Fluid - Aspirate 09/28/18 21:06 Gram Stain - Final Chest - Eswab 09/27/18 13:30 Gram Stain - Final Bronchial Alveolar Lavage - Right Lower Lobe Bronchial Culture - Final Laboratory Results 10/01/18 03:50 09/30/18 04:10 09/30/18 10/01/18 10/02/18 05:59 05:59 05:59 Intake Total 3047 1625 Output Total 2980 2230 Balance 67 -605 PT 17.1 SEC (12.0-15.0) H 09/27/18 04:08 INR 1.46 (0.83-1.16) H 09/27/18 04:08 ICD10 Worksheet Patient Problems: Problems Problem Status Onset Pleural effusion Acute
--- NOTE | 2018-10-01 15:06 | ASMTCMCOM ---
CM Note CM Note Notes: Pt up ambulating with PT in the hallway and still with Chest tube. CM met with Pt in her room to discuss discharge plans. Pt's 62yr old son is development delayed and Ruby watches over his fiances. Son is able to do his ADL and cook simple meals on his own. Pt does have neighbors that can help if the Son needs anything. Pt would like resources on home cleaning services and this CM provide Pt with a list of Cleaning services in the area and given the senior Blue book for other non medical hourly caregiver resources. CM available should needs arise. PLAN:TBD Date Signed: 10/01/2018 03:06 PM Electronically Signed By:Nia Valdez
--- NOTE | 2018-10-01 18:26 | SOAPPROG ---
SOAP Progress Note Assessment/Plan: Assessment: Pleural effusion, circumferential consistent with a low-grade empyema. White blood cells and gram-positive cocci present, low pH, high LDH, low glucose, etc. Only approximately 15 cc was obtained. The pleural process was quite organized. Status post VATS 09/28, doing very well postoperatively. ID: Growing strep intermedius from thoracentesis culture and from chest swab. On ceftriaxone. Right lower lobe consolidation on initial CT scan. Could not rule out rule out obstruction related to the superior segment of the right middle lobe but unlikely. Bronchoscopy relatively unremarkable. Growing only mixed arlteh. AFB negative. Cytologies from bronch showed only inflammation. Chest x-rays postoperatively do not suggest on going infiltrate/consolidation in the right lower lobe. Plan: Continue postop care, pain management as needed. Continue ceftriaxone. No indication for anaerobic coverage. Continue IS. Mobilize as tolerated. I anticipate need for oral antibiotics (Pcn) for 2-3 weeks after removal of the chest tube, with follow-up chest x-ray done prior to stopping antibiotics. Subjective: Feels better. Denies chest pain or shortness of breath. Was off oxygen today for some time. Positive BM. Objective: Vital Signs Temp Pulse Resp BP Pulse Ox 36.7 C 90 16 114/65 98 10/01/18 11:16 10/01/18 12:40 10/01/18 12:40 10/01/18 12:40 10/01/18 12:40 Microbiology 09/28/18 21:06 Gram Stain - Final Chest - Eswab 09/27/18 09:30 Gram Stain - Final Pleural Fluid - Aspirate 09/26/18 11:30 Blood Culture - Final Blood 09/26/18 11:25 Blood Culture - Final Blood 09/27/18 13:30 Gram Stain - Final Bronchial Alveolar Lavage - Right Lower Lobe Bronchial Culture - Final Laboratory Results 10/01/18 03:50 09/30/18 04:10 09/30/18 10/01/18 10/02/18 05:59 05:59 05:59 Intake Total 3047 1625 Output Total 2980 2230 500 Balance 67 -605 -500 PT 17.1 SEC (12.0-15.0) H 09/27/18 04:08 INR 1.46 (0.83-1.16) H 09/27/18 04:08 Microbiology 09/28/18 21:06 Chest - Eswab Gram Stain - Final 09/28/18 21:06 Chest - Eswab Anaerobic Culture - Preliminary Streptococcus Intermedius As far she does not in call blind she I CXR: No changes Physical Exam - Physical Exam General Appearance: alert, no apparent distress EENT: PERRL/EOMI, other (Nasal cannula in place at less than 1 L) Neck: normal inspection (No JVD) Respiratory: decreased breath sounds (On the right however improved), rales ( Few rales on the right, much better), other (Chest tube in place, serosanguineous drainage. 130 cc last 24 hr) Cardiac/Chest: regular rate, rhythm, other (SVT this morning) Abdomen: normal bowel sounds, non-tender, soft, other (Positive BM today) Skin: normal color, warm/dry Extremities: No pedal edema Neuro/Psych: no motor/sensory deficits, No cognition abnormalities ICD10 Worksheet Patient Problems: Problems Problem Status Onset Pleural effusion Acute
[2018-10-01] MEDS: SENNOSIDES/DOCUSATE SODIUM TAB PO SCH (20:38)
[2018-10-01] MEDS: CALCIUM CARBONATE 500 MG TAB PO SCH (20:38)
[2018-10-01] MEDS: AMITRIPTYLINE HCL 50 MG TAB PO SCH (20:39)
[2018-10-02 04:54] LABS: PLATELET COUNT 295 10^3/uL (150-400)
[2018-10-02] MEDS: LEVOTHYROXINE 88 MCG TAB PO SCH (05:25)
[2018-10-02] MEDS: KETOROLAC 15 MG/1 ML SDV IVP SCH ×4 (05:25→23:04)
[2018-10-02] MEDS: ASCORBIC ACID 500 MG TAB PO SCH (08:15)
[2018-10-02] MEDS: PRESERVISION AREDS2 FORMULA EYE VIT 1 EACH PO SCH ×2 (08:16→20:49)
[2018-10-02] MEDS: LISINOPRIL 40 MG TAB PO SCH (08:17)
[2018-10-02] MEDS: ENOXAPARIN 40 MG/0.4 ML SYR SC SCH (08:17)
[2018-10-02] MEDS: CHOLECALCIFEROL VIT D3 2,000 UNITS TAB/CAP PO SCH (08:17)
[2018-10-02] MEDS: FERROUS SULFATE 325 MG TAB PO SCH (08:17)
[2018-10-02] MEDS: NEBIVOLOL HCL 5 MG TAB PO SCH (08:18)
[2018-10-02] MEDS: MAGNESIUM OXIDE 400 MG TAB PO SCH (08:18)
[2018-10-02] MEDS: SENNOSIDES/DOCUSATE SODIUM TAB PO SCH ×2 (08:19→20:49)
--- NOTE | 2018-10-02 08:43 | SOAPPROG ---
SOAP Progress Note Assessment/Plan: Assessment: Plan: 10/02/18 08:42 complex pneumonia--improving nicely. Hopefully CT can be removed today. She is PCN allergic. Will convert to oral cephalosporin as she progresses. Subjective: Ruby is really feeling quite good. Appetite is improved. + BM yesterday. Minimal pain. No Shortness of breath Objective: Vital Signs Temp Pulse Resp BP Pulse Ox 36.8 C 98 20 141/104 H 93 10/02/18 08:00 10/02/18 08:18 10/02/18 08:00 10/02/18 08:18 10/02/18 08:00 Microbiology 09/28/18 21:06 Gram Stain - Final Chest - Eswab 09/27/18 09:30 Gram Stain - Final Pleural Fluid - Aspirate 09/26/18 11:30 Blood Culture - Final Blood 09/26/18 11:25 Blood Culture - Final Blood Laboratory Results 10/02/18 04:08 10/02/18 04:08 10/01/18 10/02/18 10/03/18 05:59 05:59 05:59 Intake Total 1625 1000 500 Output Total 2230 2120 Balance -605 -1120 500 PT 17.1 SEC (12.0-15.0) H 09/27/18 04:08 INR 1.46 (0.83-1.16) H 09/27/18 04:08 Gen: Bright Lungs: good air movement in upper lobes Heart: RRR, no more SVT Abd + bs soft LE's: mild ankle edema WBC stable, Hgb stable mildly low ICD10 Worksheet Patient Problems: Problems Problem Status Onset Pleural effusion Acute
--- NOTE | 2018-10-02 14:59 | SOAPPROG ---
PATRIA Progress Note Assessment/Plan: Assessment: 83-YEAR-OLD FEMALE WITH RIGHT EMPYEMA/DOING REASONABLY WELL/STILL SOME PAIN IN THE RIGHT SIDE/AFEBRILE/THORACENTESIS UNSUCCESSFUL Plan: VATS DECORTICATION 09/28/18 14:43 10/02/18 14:56 DOING WELL TODAY/QUITE COMFORTABLE/AFEBRILE WITH WOUND OKAY/NO AIR LEAK/MODERATE SEROUS CHEST TUBE DRAINAGE CHEST X-RAY WELL EXPANDED HOPEFULLY CHEST TUBES OUT IN THE A.M. Objective: Vital Signs Temp Pulse Resp BP Pulse Ox 36.4 C 90 20 134/80 H 97 10/02/18 11:10 10/02/18 11:10 10/02/18 11:10 10/02/18 11:10 10/02/18 11:10 Microbiology 09/28/18 21:06 Gram Stain - Final Chest - Eswab 09/27/18 09:30 Gram Stain - Final Pleural Fluid - Aspirate 09/26/18 11:30 Blood Culture - Final Blood 09/26/18 11:25 Blood Culture - Final Blood Laboratory Results 10/02/18 04:08 10/02/18 04:08 10/01/18 10/02/18 10/03/18 05:59 05:59 05:59 Intake Total 1625 1000 500 Output Total 2230 2120 Balance -605 -1120 500 PT 17.1 SEC (12.0-15.0) H 09/27/18 04:08 INR 1.46 (0.83-1.16) H 09/27/18 04:08 ICD10 Worksheet Patient Problems: Problems Problem Status Onset Pleural effusion Acute
--- NOTE | 2018-10-02 15:40 | CPEKG ---
Test Reason : OPEN Blood Pressure : / mmHG Vent. Rate : 147 BPM Atrial Rate : 149 BPM P-R Int : 089 ms QRS Dur : 086 ms QT Int : 308 ms P-R-T Axes : 007 000 044 degrees QTc Int : 482 ms Atrial flutter Confirmed by Franklin Day ([id number]) on 10/02/2018 3:39:36 PM Referred By: Nasim Castelan Confirmed By:Franklin Day
[2018-10-02] MEDS: AMITRIPTYLINE HCL 50 MG TAB PO SCH (20:49)
[2018-10-02] MEDS: CALCIUM CARBONATE 500 MG TAB PO SCH (20:49)
[2018-10-03] MEDS: LEVOTHYROXINE 88 MCG TAB PO SCH (06:29)
[2018-10-03] MEDS: KETOROLAC 15 MG/1 ML SDV IVP SCH ×2 (06:29→12:52)
--- NOTE | 2018-10-03 08:49 | SOAPPROG ---
SOAP Progress Note Assessment/Plan: Assessment/Plan: 83 Y F R VATS c decortication for empyema. Drainage down. Afebrile. No air leak. Wounds clean. Removed chest tubes. CXR this afternoon. Would be ok with d/c from surgical standpoint. Pt prefers tomorrow which is reasonable. Defer to internal medicine. S: no sob, feeling much better. O: alert, nad no air leak rrr abd soft wounds intact. 10/03/18 08:47 Objective: Vital Signs Temp Pulse Resp BP Pulse Ox 37.1 C 97 16 139/76 H 90 L 10/03/18 07:17 10/03/18 07:17 10/03/18 07:17 10/03/18 07:17 10/03/18 07:17 Microbiology 09/27/18 09:30 Gram Stain - Final Pleural Fluid - Aspirate 09/28/18 21:06 Gram Stain - Final Chest - Eswab Laboratory Results 10/02/18 04:08 10/02/18 04:08 10/02/18 10/03/18 10/04/18 05:59 05:59 05:59 Intake Total 1000 1850 Output Total 2120 700 Balance -1120 1850 -700 PT 17.1 SEC (12.0-15.0) H 09/27/18 04:08 INR 1.46 (0.83-1.16) H 09/27/18 04:08 ICD10 Worksheet Patient Problems: Problems Problem Status Onset Pleural effusion Acute
[2018-10-03] MEDS: MAGNESIUM OXIDE 400 MG TAB PO SCH (08:55)
[2018-10-03] MEDS: PRESERVISION AREDS2 FORMULA EYE VIT 1 EACH PO SCH ×2 (08:56→21:03)
[2018-10-03] MEDS: LISINOPRIL 40 MG TAB PO SCH (08:56)
[2018-10-03] MEDS: NEBIVOLOL HCL 5 MG TAB PO SCH (08:56)
[2018-10-03] MEDS: FERROUS SULFATE 325 MG TAB PO SCH (08:56)
[2018-10-03] MEDS: ASCORBIC ACID 500 MG TAB PO SCH (08:56)
[2018-10-03] MEDS: SENNOSIDES/DOCUSATE SODIUM TAB PO SCH ×2 (08:57→21:33)
[2018-10-03] MEDS: CHOLECALCIFEROL VIT D3 2,000 UNITS TAB/CAP PO SCH (08:57)
[2018-10-03] MEDS: ENOXAPARIN 40 MG/0.4 ML SYR SC SCH (08:58)
--- NOTE | 2018-10-03 09:21 | SOAPPROG ---
SOAP Progress Note Assessment/Plan: Assessment: 83 yo female w/ RLL empyema, s/p bronch and now s/p VATS/decortication, s/p CT removal this am -doing remarkably well, needing minimal pain meds, chest tubes removed this morning w/ f/u cxr this afternoon, appreciate surgery's input and assistance - doing well w/ ambulating - has been walking this am after chest tube removal. Growing streptococcus intermedius, covered with ceftriaxone, will continue one more day of ceftriaxone and tomorrow w/ d/c change to oral cephalosporin. -SVT over the w/e, no further incidents. -HTN cont Bystolic and ACEi, holding spironolactone, resume now that is doing so well and bp's now on higher end -thoracic compression fx - cont tramadol prn -dvt proph - lovenox, scd's ambulating -constipation resolved -dispo - likely tomorrow if cxr stable, does well overnight. 10/03/18 09:17 10/03/18 09:24 Subjective: Bright spirits, happy to have chest tubes removed, up ambulating, is coughing Objective: Vital Signs Temp Pulse Resp BP Pulse Ox 37.1 C 97 16 139/76 H 90 L 10/03/18 07:17 10/03/18 08:56 10/03/18 07:17 10/03/18 08:56 10/03/18 07:17 Microbiology 09/27/18 09:30 Gram Stain - Final Pleural Fluid - Aspirate 09/28/18 21:06 Gram Stain - Final Chest - Eswab Laboratory Results 10/02/18 04:08 10/02/18 04:08 10/02/18 10/03/18 10/04/18 05:59 05:59 05:59 Intake Total 1000 1850 Output Total 2120 700 Balance -1120 1850 -700 PT 17.1 SEC (12.0-15.0) H 09/27/18 04:08 INR 1.46 (0.83-1.16) H 09/27/18 04:08 GEN: bright spirits, pleased to be walking around w/ chest tubes out HEENT: perr, eomi NECK: soft, supple CHEST: dressing R Lat chest, coarse bs R CV: rrr ABD: soft nt nd Ext: trace ankle edema Psych: bright affect, A&O - Pending Discharge Pending Discharge Within 24 Hours: Yes Pending Discharge Within 48 Hours: Yes Pending Discharge Date: 10/04/18 Pending Discharge Time: 11:00 ICD10 Worksheet Patient Problems: Problems Problem Status Onset Pleural effusion Acute
[2018-10-03] MEDS: SPIRONOLACTONE 25 MG TAB PO SCH (12:09)
[2018-10-03] MEDS ORDERED: OMEGA-3 FATTY ACIDS 1,000 MG CAP PO SCH (21:00)
[2018-10-03] MEDS: CALCIUM CARBONATE 500 MG TAB PO SCH (21:03)
[2018-10-03] MEDS: AMITRIPTYLINE HCL 50 MG TAB PO SCH (21:04)
[2018-10-04] MEDS: LEVOTHYROXINE 88 MCG TAB PO SCH (06:38)
[2018-10-04 08:40] VITALS: BP 128/74
--- NOTE | 2018-10-04 08:57 | SOAPPROG ---
SOAP Progress Note Assessment/Plan: Assessment: Plan: 10/02/18 08:42 complex pneumonia--improving nicely. Hopefully CT can be removed today. She is PCN allergic. Will convert to oral cephalosporin as she progresses. 10/04/18 08:56 complex pneumonia--she has made great progress. Will d/c home. She has had ceftin called into her pharmacy. Will see patient in follow up in a few days. Subjective: She is feeling well. Ready to go. Minimal productive cough. 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 No crackles Heart: 90-100 BPM regular Abd + bs soft LE's trace edema CXR right hemidiaphragm elevated o/w improved ICD10 Worksheet Patient Problems: Problems Problem Status Onset Pleural effusion Acute
[2018-10-04] MEDS ORDERED: OMEGA-3 FATTY ACIDS 1,000 MG CAP PO SCH (09:00)
[2018-10-04] MEDS: SPIRONOLACTONE 25 MG TAB PO SCH (09:23)
[2018-10-04] MEDS: LISINOPRIL 40 MG TAB PO SCH (09:23)
[2018-10-04] MEDS: FERROUS SULFATE 325 MG TAB PO SCH (09:23)
[2018-10-04] MEDS: PRESERVISION AREDS2 FORMULA EYE VIT 1 EACH PO SCH (09:23)
[2018-10-04] MEDS: MAGNESIUM OXIDE 400 MG TAB PO SCH (09:24)
[2018-10-04] MEDS: NEBIVOLOL HCL 5 MG TAB PO SCH (09:24)
[2018-10-04] MEDS: ASCORBIC ACID 500 MG TAB PO SCH (09:24)
[2018-10-04] MEDS: ENOXAPARIN 40 MG/0.4 ML SYR SC SCH (09:24)
[2018-10-04] MEDS: CHOLECALCIFEROL VIT D3 2,000 UNITS TAB/CAP PO SCH (09:24)
[2018-10-04] MEDS: SENNOSIDES/DOCUSATE SODIUM TAB PO SCH (09:26)
[2018-10-04] MEDS: PIROXICAM 20 MG PO SCH (09:27)
--- NOTE | 2018-10-04 10:04 | GDS ---
[f rep st] DISCHARGE SUMMARY REASON FOR ADMISSION: Concern over complex pneumonia. DISCHARGED DIAGNOSES: 1. Complex pneumonia requiring chest tube intervention for drainage of infected fluid. 2. Hypertension, adequately controlled. 3. Constipation, resolved. HOSPITAL COURSE: Patient was admitted through the ER given complex concerns regarding her cardiopulm onary status. CT of chest did not identify pulmonary emboli but did identify loculated pneumonia. S he had a thoracentesis attempted, which was difficult for draining much fluid. Ultimately, she had s urgical consultation and chest tube placed to further drain material from her small empyema. She had Golf Club Manager consultation and ultimately cultures identified a Strep intermedius. She has been on ce ftriaxone with good response. She has not had fever and chills. She will be transitioned to Ceftin 250 twice daily. She will be seen in office for followup in the next couple of days. She knows to c all if anything else arises. She initially required oxygen to support acute respiratory failure. Th is has since resolved. She will be discharged home without oxygen. /[id number]/MODL
--- NOTE | 2018-10-04 10:50 | GOP ---
[f rep st] OPERATIVE REPORT DATE OF OPERATION: 09/28/2018 SURGEON: Michael Monahan MD SHRIMP PEELING MACHINE OPERATOR: None. ANESTHESIOLOGIST: Dr. Henley. PREOPERATIVE DIAGNOSIS: Empyema, right chest. POSTOPERATIVE DIAGNOSIS: Empyema, right chest. PROCEDURE PERFORMED: Video-assisted thoracoscopic surgery drainage of empyema and decortication. FINDINGS: Patient was found have thick loculated pus posteriorly with fibrinous exudate entrapping t he lower lobe and a right lower lobe pneumonia. DESCRIPTION OF PROCEDURE: The patient was taken to the operating room where she received satisfactor y general endotracheal anesthesia by Dr. Henley with a double-lumen endotracheal tube. She was placed in the left lateral decubitus position, prepped and draped in usual sterile fashion. A short incisi on was made in the sixth intercostal space in the midaxillary line. A trocar was introduced. Visual ization was somewhat limited because the diaphragm was riding quite high, but adequate visualization was obtained to place 2 additional trocars under direct vision. Using the suction, all loculations were broken down and purulent material was suctioned free from a l oculated posterior empyema until the entire right lung could be freed up and mobilized. Dissection w as also extended anteriorly to free the lung up and off the diaphragm and mediastinum. Fibrinous ronak ris was removed manually. One of the trocar sites was enlarged slightly to allow better instruments for manually debriding the pleura, as well as the fibrous exudate on the right lower lobe, until the right lower lobe could be fully expanded. The wound was copiously irrigated. Hemostasis was assured. Two 28 chest tubes were brought in throu gh the trocar sites and placed in the posterior aspect of the chest, secured to the exit sites with i nterrupted silk sutures and connected to a Pleur-evac drainage system. Wounds were infiltrated with 0.5% Marcaine and closed with 0 Vicryl for the muscular layers and 4-0 Monocryl subcuticular stitch f or the skin. She tolerated the procedure well. She was taken to the recovery room in good condition . There were no complications. /[id number]/MODL
--- NOTE | 2018-10-04 11:47 | ASMTDCNOTE ---
Case Management Discharge Discharge Order Complete? Answers: Yes Patient to Obtain Answers: Other Notes: Bedside delivery Medications Transportation Arranged Answers: Taxi - Self Pay Transport will Pick (Date 10/04/2018 11:44 AM & Time) Family Notified Answers: Yes Notes: by pt Discharge Comments Notes: CM spoke with pt, RN and provider. PT was recommending C, however pt, RN and hospitalist felt pt was safe on her own. Pt requested CM call her a taxi for transport home and CM did so. Pt stated she also has support from her neighbors. No further CM needs noted at this time. Date Signed: 10/04/2018 11:46 AM Electronically Signed By:Lashae Bhat. JAISON
--- NOTE | 2018-10-04 11:58 | ASDISCHSUM ---
Discharge Information Plan Status:Home with No Needs Medically Cleared to Leave:10/04/2018 Discharge Date:10/04/2018 11:45 AM CM D/C Disposition:Home, Routine, Self-Care ADT D/C Disposition:Home, Routine, Self-Care Projected Discharge Date:10/04/2018 11:45 AM Transportation at D/C:Taxicab Discharge Delay Reason: Follow-Up Date:10/04/2018 11:45 AM Discharge Slot: Final Diagnosis:weakness, leukocytosis Placement Information Patient Contact Information Contact Name:RADHA Relationship:Vance Address: Work Phone: City: [facility] Phone: State/Local.com Code: Email: Financial Information Financial Class:Medicare Advantage Plans Primary Plan Desc:[facility] MED[facility] MALIK Primary Plan Number:[id number] Secondary Plan Desc: Secondary Plan Number: Assessment Information LACE LACE Length of stay for Answers: 7-13 days current admission Acuity / Level of Answers: Yes Care: Did the patient have an inpatient admission? Comorbidities - select Answers: Coronary Artery Disease all that apply Other Notes: HTN; HLD; Hypothyroid # of Emergency department Answers: 0 visits in the last 6 months Social determinants Answers: Mental health diagnosis (anxiety, depression, pers onality disorders, etc.) Score: 14 Date Signed: 10/04/2018 11:56 AM Electronically Signed By:Lashae Bhat. RN [facility] Initial CM Assessment Living Arrangements What is your living Answers: With Child(alvin) arrangement? Who do you live with? Discharge Plan Comments Coordination Status Comments Notes: Pt was admitted through the ED yesterday with weakness, fatigue, and leukocytosis. CM met with pt in her room today. She had thorocentesis ultrasound and bronchoscopy today. Awaiting results; suspected infection. Pt lives at home with her adult son, Lavelle Arriaga [phone]. Lavelle does not drive. Pt is normally independent and drives and is able to obtain her own meds and meals. CM left her a pamphlet with information on [employer] Home[employer]. She arrived to the ED by taxi because she didn't want her car to sit in the parking lot for an indeterminate amount of time. She does not use a walker or any other asisstive devices. No therapies are ordered. No CM needs identified at this time. CM will be available should needs change. CM D/C plan: TBD, likely independent to home. Date Signed: 09/27/2018 03:43 PM Electronically Signed By:Leticia Chaves.RN [facility] CM Progress Note CM Note CM Note Notes: Met w patient d/t reports that she was anxious about being hospitalized while her son - for whom she is caregiver - is at home. Patient is to have VATS today; d/c date and needs TBD. 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 She says that he does not drive but he was able to take the bus to [employer] and [employer] today. She says that he is independent in all of his ADLs and would be able to buy groceries if he needed to. It seems like she is responsible for all of the finances in the household and is mainly worried that if something happened to her that he wouldn't know how/be able to access accounts, finances, etc. She does have a trust set up for him and contacted her millwright supervisor today when she found out she needed the procedure. We talked about getting more support - for her - in the house when she is d/c'ed. She has used [facility] [employer] before and is open to using them again. She has also tried to contact the [facility] and I told her that we could help with this, as well. Case Management will follow so that she has a safe d/c home and does not compromise her health in her desire to care for her son. Date Signed: 09/28/2018 03:06 PM Electronically Signed By:Dian Walden RN [facility] CM Progress Note CM Note CM Note Notes: CM met with pt in her room and gave her phone number for [facility] so she can call them and find out what resources they can connect her with that would benefit her. She is particularly interested in housecleaning services, possibly discounted for seniors. CM also gave her the phone # for [facility] [employer] in case pt feels she could benefit from caregiver services when she leaves the hospital. She used their services for her in the past. CM will continue to follow pt's progress and provide resource phone #s and/or referrals if further needs arise. CM D/C plan: TBD, most likely independent to home with possible caregiver services. Date Signed: 09/29/2018 09:51 AM Electronically Signed By:Leticia Chaves.JAISON [facility] CM Progress Note CM Note CM Note Notes: Pt up ambulating with PT in the hallway and still with Chest tube. CM met with Pt in her room to discuss discharge plans. Pt's 62yr old son is development delayed and Ruby watches over his fiances. Son is able to do his ADL and cook simple meals on his own. Pt does have neighbors that can help if the Son needs anything. Pt would like resources on home cleaning services and this CM provide Pt with a list of Cleaning services in the area and given the [employer] book for other non medical care partner resources. CM available should needs arise. PLAN:TBD Date Signed: 10/01/2018 03:06 PM Electronically Signed By:Nia Valdez.JAISON,COMBINATION MACHINE TOOL OPERATOR Case Management Discharge Plan Note Case Management Discharge Discharge Order Complete? Answers: Yes Patient to Obtain Answers: Other Notes: Bedside delivery Medications Transportation Arranged Answers: Taxi - Self Pay Transport will Pick (Date 10/04/2018 11:44 AM & Time) Family Notified Answers: Yes Notes: by pt Discharge Comments Notes: CM spoke with pt, RN and provider. PT was recommending [facility], however pt, RN and hospitalist felt pt was safe on her own. Pt requested CM call her a taxi for transport home and CM did so. Pt stated she also has support from her neighbors. No further CM needs noted at this time. Date Signed: 10/04/2018 11:46 AM Electronically Signed By:Lashae Bhat. JAISON Intervention Information Intervention Type:*IM-Signed Date of Service:10/04/2018 09:32 AM Patient Type:Inpatient Staff Member:Crystal Bryant Hours: Discipline: Severity: Comment:
== END 2018-10-04 11:45 | disposition home or self-care (01) | DRG 163 ==
LOC: F1N 10:08 → OBSVTOIN 17:53
PROVIDERS: ADMIT Internal Medicine; ATTEND Internal Medicine
PROC: 0B9J8ZX Drainage of Left Lower Lung Lobe, Via Natural or Artificial Opening Endoscopic, Diagnostic (ICD-10-PCS; 2018-09-27)
PROC: 0B9F8ZX Drainage of Right Lower Lung Lobe, Via Natural or Artificial Opening Endoscopic, Diagnostic (ICD-10-PCS; 2018-09-27)
PROC: 0B9F8ZZ Drainage of Right Lower Lung Lobe, Via Natural or Artificial Opening Endoscopic (ICD-10-PCS; principal; 2018-09-28 21:15)
PROC: 0BBF8ZZ Excision of Right Lower Lung Lobe, Via Natural or Artificial Opening Endoscopic (ICD-10-PCS; principal; 2018-09-28 21:15)
PROC: 0BN Respiratory System, Release (ICD-10-PCS; principal; 2018-09-28 21:15)
PROC: 0W993ZX Drainage of Right Pleural Cavity, Percutaneous Approach, Diagnostic (ICD-10-PCS; 2018-10-01)
DX: J86.9 Pyothorax without fistula (principal); J18.9 Pneumonia, unspecified organism; J96.01 Acute respiratory failure with hypoxia; B95.5 Unspecified streptococcus as the cause of diseases classified elsewhere; K59.00 Constipation, unspecified; I10 Essential (primary) hypertension; I25.10 Atherosclerotic heart disease of native coronary artery without angina pectoris; K21.9 Gastro-esophageal reflux disease without esophagitis; E03.9 Hypothyroidism, unspecified; E78.5 Hyperlipidemia, unspecified; M48.54XA Collapsed vertebra, not elsewhere classified, thoracic region, initial encounter for fracture
CPT/HCPCS: 82784-90; 97110-GP; 97116-GP; 97161-GP; 97165-GO; 97530-GO; 97530-GP; 97535-GO; G0378; G0379; J0295; J0692; J0696; J1100; J1170; J1650; J1885; J1956; J2250; J2370; J2405; J3010; J7613; Q9967

== ENCOUNTER → 2018-10-12 | Outpatient (CLI) | payer OTHER | LOC: FIMAGING 12:37 ==

== ENCOUNTER → 2018-11-02 | Outpatient (CLI) | payer OTHER | LOC: FIMAGING 12:58 ==